=== PATIENT | male | born 1970 | race Caucasian/White ===

== ENCOUNTER 2017-12-14 16:17 | Emergency (ER) | payer SELFPAY ==
[~2017-12-14] VITALS: Ht 185.4 cm; Wt 110.5 kg
[2017-12-14] MEDS ORDERED: CYCLOBENZAPRINE HCL 10 MG TABLET PO ONE (19:00)
[2017-12-14] MEDS ORDERED: KETOROLAC TROMETHAMINE 30 MG/ML VIAL IM ONE (19:00)
[2017-12-14 20:02] VITALS: BP 142/65
== END 2017-12-14 20:06 | disposition home or self-care (01) ==
LOC: EMS 16:18
DX: S29.012A Strain of muscle and tendon of back wall of thorax, initial encounter (principal); S16.1XXA Strain of muscle, fascia and tendon at neck level, initial encounter; S46.211A Strain of muscle, fascia and tendon of other parts of biceps, right arm, initial encounter; S46.212A Strain of muscle, fascia and tendon of other parts of biceps, left arm, initial encounter; X58.XXXA Exposure to other specified factors, initial encounter; F17.210 Nicotine dependence, cigarettes, uncomplicated; Y93.89 Activity, other specified; Y92.89 Other specified places as the place of occurrence of the external cause; Y99.8 Other external cause status; Z98.890 Other specified postprocedural states
CPT/HCPCS: 96372; 99283; 99406; J1885